=== PATIENT | female | born 2005 | race Caucasian/White ===

== ENCOUNTER → 2025-02-19 08:39 | Outpatient (RCR) | payer MEDICAID, SELFPAY | END | disposition home or self-care (01) | LOC: HO.PTCHIC 11-21 15:12 | PROVIDERS: PCP Nurse Practitioner Pediatrics; Visit Provider Nurse Practitioner Pediatrics | DX: G89.29 Other chronic pain (principal); M54.5 Low back pain | CPT/HCPCS: 97014; 97110; 97140; 97161; 97530 ==